=== PATIENT | female | born 1950 | race Caucasian/White ===

== ENCOUNTER 2017-09-29 22:27 | Observation (INO) | payer MEDICARE, OTHER ==
--- NOTE | 2017-09-29 22:36 | ED.PDOC ---
History of Present Illness - General Chief Complaint: Diabetic Complaint Time Seen by Provider: 09/29/17 22:32 Source: patient, EMS notes reviewed Exam Limitations: no limitations - History of Present Illness Initial Comments: THE PATIENT PRESENTS TO OUR ED WITH C/O ALTERED MENTAL STATUS JUST IMPROVEMENT LEAD. THE PATIENT WAS NOTED TO TAKE 35UNITS OF INSULIN AT 1430 EARLIER TODAY AND ATE VERY LITTLE FOOD. SEVERAL HOURS LATER THE PATIENT WAS NOTED TO BE ACTING ABNORMALLY AND WAS FOUND TO BE HYPOGLYCEMIC IN THE 30S. DUE TO THIS THE PATIENT RECEIVED CORRECTIVE MEASURES IN THE FIELD AND THESE ACTIONS CAUSED THE PATIENT TO RETURN TO HER NEUROLOGICAL BASELINE. Timing/Duration: unsure Severity: severe Improving Factors: other - DEXTROSE/FOOD Worsening Factors: nothing Associated Symptoms: weakness Allergies/Adverse Reactions: Allergies Benazepril Allergy (Verified 09/29/17 23:41) Diltiazem Allergy (Verified 09/29/17 23:41) Irbesartan Allergy (Verified 09/29/17 23:41) Isosorbide Nitrate Allergy (Verified 09/29/17 23:41) Nifedipine Allergy (Verified 09/29/17 23:41) Home Medications: Ambulatory Orders Betamethasone Valerate 09/29/17 Calcitriol [Calcitriol] 09/29/17 Cinacalcet HCl [Sensipar] 30 mg PO 09/29/17 Febuxostat [Uloric] 80 mg PO 09/29/17 Furosemide 80 mg PO 09/29/17 Gabapentin 100 mg PO 09/29/17 Glyburide 5 mg PO 09/29/17 Glyburide [Glyburide] 09/29/17 Hydrocortisone (Topical) [Hydrocortisone] 2.5 % EX 09/29/17 Insulin Aspart [Novolog Flexpen] 09/29/17 Insulin Glargine [Lantus Solostar] 09/29/17 Levothyroxine Sodium [Synthroid] 09/29/17 Liraglutide [Victoza] 09/29/17 Metoprolol Tartrate [Lopressor] 09/29/17 Potassium Chloride Microencaps [Klor-Con M20] 09/29/17 Simvastatin [Simvastatin] 09/29/17 Spironolactone [Spironolactone] 09/29/17 guaiFENesin W/CODEINE LIQ [Robitussin AC] 09/29/17 hydrOXYzine HCl [Atarax] 25 mg PO 09/29/17 metOLazone [Zaroxolyn] 09/29/17 Review of Systems - Review of Systems Constitutional: States: weakness Neurological: States: weakness Endocrine: States: other - ACUTE HYPOGLYCEMIA All other Systems: Reviewed and Negative Past Medical History (General) - Patient Medical History Hx Cardiac Disorders: Yes Hx Other PMH: Yes - CHF,IDDM Family Medical History - Family History Father Family History: Unknown Physical Exam - Physical Exam General Appearance: Alert, Comfortable, Well Developed, Well Groomed Ears, Nose, Throat: hearing grossly normal, normal ENT inspection Neck: non-tender, full range of motion Respiratory: chest non-tender Cardiovascular/Chest: normal peripheral pulses, regular rate, rhythm Gastrointestinal/Abdominal: normal bowel sounds, non tender Back Exam: normal inspection, no CVA tenderness Extremity: normal range of motion Neurologic: no motor/sensory deficits, alert, normal mood/affect Skin Exam: normal color Progress - Progress Progress: 09/29/17 22:38 THE PATIENT'S PRESENTATION IS CONCERNING FOR ACUTE HYPOGLYCEMIC EPISODE AT THIS TIME. THE PATIENT WILL RECEIVE A CBC TO EVALUATE FOR ANEMIA/WBC ELEVATION WELL A BMP TO EVALUATE FOR ELECTROLYTE DERANGEMENT/DEHYDRATION/GLUCOSE ABNORMALITIES AT THIS TIME. THE PATIENT WILL ALSO BE MONITORED. THE PATIENT'S DISPO WILL BE DEPENDENT UPON HER ED WORK UP. 09/29/177 THE PATIENT IS DOING WELL AT THIS TIME. SHE IS TALKING WITH HER FAMILY IN THE ROOM. SHE HAS NO QUESTIONS AT THIS TIME. 09/30/17 00:12 THE PATIENT REMAINS STABLE AT THIS TIME. SHE HAS BEEN ADVISED IN LIGHT OF HER HYPOGLYCEMIC EPISODE AND HER MEDICATION REGIMEN SHE REQUIRES MONITORING OVERNIGHT TO EXCLUDE FURTHER EMERGENT EPISODES OF THIS ISSUE. THE PATIENT IS IN AGREEMENT WITH THIS PLAN. Departure - Departure Clinical Impression: Hypoglycemia Adverse reaction to drug Qualifiers: Encounter type: initial encounter Qualified Code(s): T88.7XXA - Unspecified adverse effect of drug or medicament, initial encounter Disposition: Admit Patient Home Medications: Ambulatory Orders Betamethasone Valerate 09/29/17 Calcitriol [Calcitriol] 09/29/17 Cinacalcet HCl [Sensipar] 30 mg PO 09/29/17 Febuxostat [Uloric] 80 mg PO 09/29/17 Furosemide 80 mg PO 09/29/17 Gabapentin 100 mg PO 09/29/17 Glyburide 5 mg PO 09/29/17 Glyburide [Glyburide] 09/29/17 Hydrocortisone (Topical) [Hydrocortisone] 2.5 % EX 09/29/17 Insulin Aspart [Novolog Flexpen] 09/29/17 Insulin Glargine [Lantus Solostar] 09/29/17 Levothyroxine Sodium [Synthroid] 09/29/17 Liraglutide [Victoza] 09/29/17 Metoprolol Tartrate [Lopressor] 09/29/17 Potassium Chloride Microencaps [Klor-Con M20] 09/29/17 Simvastatin [Simvastatin] 09/29/17 Spironolactone [Spironolactone] 09/29/17 guaiFENesin W/CODEINE LIQ [Robitussin AC] 09/29/17 hydrOXYzine HCl [Atarax] 25 mg PO 09/29/17 metOLazone [Zaroxolyn] 09/29/17 Decision To Admit - Decistion To Admit Decision to Admit Reason: Medical Nature Decision to Admit Date: 09/30/17 Decision to Admit Time: 00:15 - THE PATIENT HAS BEEN ADMITTED TO [facility]( [facility])
[2017-09-30] MEDS ORDERED: GLUCAGON INJ 1 MG VIAL SUBCU PRN ×2 (00:41→00:43)
[2017-09-30] MEDS ORDERED: DEXTROSE 50% 25 GM/50 ML SYG IV PRN ×2 (00:41→00:43)
[2017-09-30] MEDS ORDERED: SODIUM CHLORIDE 0.9% (FLUSH) 10 ML SYG IV PRN (00:41)
[2017-09-30] MEDS ORDERED: IV SET AND CAP CHANGE INJ INJ SCH (01:00)
[2017-09-30 05:30] VITALS: O2SAT 95
[2017-09-30 09:10] VITALS: BP 119/81; TEMP 97.9
--- NOTE | 2017-09-30 11:39 | SSS ---
SUPERVISING PHYSICIAN: Tyrone Jacinto MD DATE OF ADMISSION: 09/30/17 DATE OF DISCHARGE: 09/30/17 DISCHARGE DIAGNOSIS: 1. Insulin dependent diabetes mellitus with acute hypoglycemic episode. 2. Chronic kidney disease, stage 4, with current creatinine of 1.92. 3. History of hypertension. 4. History of congestive heart failure with no current echocardiogram available for review at time of admission without any exacerbation. 5. Chronic obstructive pulmonary disease, stable without acute exacerbation. HISTORY OF PRESENT ILLNESS: Ms. Sullivan is a 67-year-old female patient who presented to the Emergency Department on 09/29/17. She is on vacation with family at [facility]. She is diabetic and takes long- acting and short-acting insulin. Yesterday, she had not eaten very much, but continued to take her long-acting insulin and took 35 units of Lantus. Several hours later, it was noted the patient was not acting normal and then at that time was found to be hypoglycemic with blood sugar in the 30s. 911 was called at that time. EMS on scene treated the patient for acute hypoglycemia with the patient returning to her baseline neurologic status. She then presented to the Emergency Room for further evaluation and treatment. On arrival to the Emergency Room, laboratory studies showed her blood sugar was 131. Given that she has a history of diabetes with concerns for further emergent episodes and rebound hypoglycemia, in discussion with the Emergency Room physician, it was felt the best plan of action was to place the patient in observation for closed monitoring. She was placed in observation in stable condition. PAST MEDICAL HISTORY: 1. Insulin dependent diabetes mellitus. 2. Stage 4 kidney disease. 3. Hypertension. 4. Chronic obstructive pulmonary disease. 5. Congestive heart failure. PAST SURGICAL HISTORY: 1. Cholecystectomy. 2. Appendectomy. 3. Hernia repair. 4. Rhinoplasty. 5. Four angioplasties without stent placement. HOME MEDICATIONS: 1. Zaroxolyn. 2. Atarax. 3. Guaifenesin. 4. Spironolactone. 5. Simvastatin. 6. Potassium chloride. 7. Lopressor. 8. Victoza. 9. Synthroid. 10. Lantus. 11. NovoLog. 12. Hydrocortisone. 13. Glyburide. 14. Lasix. 15. Uloric. 16. Sensipar. 17. Calcitrol. ALLERGIES: BENAZEPRIL, DILTIAZEM, IRBESARTAN, ISOSORBIDE, NIFEDIPINE. FAMILY HISTORY: Her father is at age 48 secondary to heart attack. He also had a history of polio. Mother at age 87 with a history of hypertension. SOCIAL HISTORY: The patient resides in [place], [place]. She is visiting family and friends who reside in [place] who are spending vacation time at [facility]. She is retired, previous hospital worker. She has a history of smoking tobacco for over 21 years and stopped at age 39. She rarely uses alcohol and denies any illicit drug use. REVIEW OF SYSTEMS: CONSTITUTIONAL: As noted in history of present illness, she had some weakness on admission, but this resolved. Denies any general malaise, fevers, chills, or weight changes. HEENT: Denies nasal congestion, sore throat, earaches, headaches. RESPIRATORY: Denies shortness of breath, coughing, wheezing. CARDIOVASCULAR: Denies chest pain, palpitations or peripheral edema. GASTROINTESTINAL: Denies nausea or vomiting, diarrhea, constipation or abdominal pains. GENITOURINARY: Denies dysuria, hematuria, polyuria, nocturia or other urinary symptoms. ENDOCRINE: As noted in history of present illness with acute hypoglycemia on admission. NEUROLOGIC: Denies dizziness, syncopal episodes, ataxia or other neurologic deficits other than decreased mentation secondary to hypoglycemia prior to admission. PHYSICAL EXAMINATION: VITAL SIGNS: On admission, temperature 96.0. Pulse 74. Blood pressure 126/61. Respirations 20. Saturation 97%. At discharge, temperature 97.9. Blood pressure 118/81. Saturation 95%. Admission weight 122.6 kg. GENERAL: The patient on exam appears to be in no acute distress. She is well- developed, well-hydrated, resting comfortably and alert. HEENT: Tympanic membranes clear bilaterally. Oropharynx is pink, moist without any lesions. NECK: No jugular venous distention noted. RESPIRATORY: Lungs clear to auscultation bilaterally without any rhonchi, wheezes, or rales. CARDIOVASCULAR: Regular rate and rhythm without any appreciable murmurs, gallops, or rubs. ABDOMEN: Obese, but soft, nontender. Positive bowel sounds. EXTREMITIES: There is no cyanosis, clubbing or edema. NEUROLOGIC: The patient is alert and oriented times three. Cranial nerves II- XII are grossly intact. LABORATORY: On admission, potassium 3.4, BUN 56, creatinine 1.97. Initial glucose 131. Blood sugars ranged between 131 and 233 with calcium normal at 8.8. Urinalysis was within normal limits. MICROBIOLOGY: No specimens collected. RADIOLOGY: No radiographic studies were completed. ADMISSION DIAGNOSIS: 1. Insulin dependent diabetes mellitus with acute hypoglycemic episode. 2. Chronic kidney disease, stage 4, with current creatinine of 1.92. 3. History of hypertension. 4. History of congestive heart failure with no current echocardiogram available for review at time of admission without any exacerbation. 5. Chronic obstructive pulmonary disease, stable without acute exacerbation. HOSPITAL COURSE: Ms. Sullivan is a 67-year-old female patient as noted in history of present illness who presented to the Emergency Department after she had acute hypoglycemic episode. She was treated on scene by EMS when she was found to have a blood sugar of 30. She presented to the Emergency Room for further evaluation. Given that she required treatment with D50, it was felt the patient was best served by being placed in observation overnight for further monitoring to ensure she did not have a rebound hypoglycemic event. She was placed in observation in stable condition. She had stable blood sugars. She had no recurrence of hypoglycemia. On the morning of discharge, she was felt stable enough to be discharged to followup in the outpatient setting. PLAN: Ms. Sullivan was discharged home to have close followup with her doctor in [place], [place]. She was to resume all her home medications as previous to hospitalization. She was to monitor blood sugars on a regular basis, at least 3 to 4 times a day and to take her insulin as directed based on her blood sugars. She was also encouraged to eat some complex carbohydrate snacks between planned meals to prevent any hypoglycemic events, especially a snack at night before going to bed. She was to return to the hospital should she have any concerning symptoms or call 911. No new medications were prescribed at discharge as she did have a glucagon pen already at home. Diet at discharge was diabetic diet as tolerate. Activity to increase as tolerated. Condition on discharge was stable and improved. #[id number] [facility]
== END 2017-09-30 13:11 | disposition home or self-care (01) ==
LOC: ER 22:27 → MS 09-30 00:31
PROVIDERS: ADMIT Nurse Practitioner; ATTEND Nurse Practitioner Family
DX: E11.649 Type 2 diabetes mellitus with hypoglycemia without coma (principal); I13.0 Hypertensive heart and chronic kidney disease with heart failure and stage 1 through stage 4 chronic kidney disease, or unspecified chronic kidney disease; N18.4 Chronic kidney disease, stage 4 (severe); E11.22 Type 2 diabetes mellitus with diabetic chronic kidney disease; I50.9 Heart failure, unspecified; J44.9 Chronic obstructive pulmonary disease, unspecified; Z79.4 Long term (current) use of insulin; Z79.899 Other long term (current) drug therapy; Z88.8 Allergy status to other drugs, medicaments and biological substances; Z87.891 Personal history of nicotine dependence